=== PATIENT | male | born 1955 | race Caucasian/White ===

== ENCOUNTER 2019-05-18 00:19 | Emergency (ER) | payer MEDICAID ==
[~2019-05-18] VITALS: Ht 177.8 cm; Wt 80.7 kg
[2019-05-18 00:22] VITALS: BP 149/91
--- NOTE | 2019-05-18 00:35 | NUR ---
L eye flush w/ orlin's lens w/ 1L NS.
[2019-05-18] MEDS ORDERED: FLUORESCEIN SODIUM OPHTH 1 EA STRIP ONE (00:53)
[2019-05-18] MEDS ORDERED: TETRAcaine 5 ML BOTTLE EACHEYE ONE (01:00)
[2019-05-18] MEDS ORDERED: FLUORESCEIN SODIUM OPHTH 1 EA STRIP OP ONE (01:00)
--- NOTE | 2019-05-18 01:02 | NUR ---
Patient discharged to home in stable condition. Written and verbal after care instructions given. Patient verbalizes understanding of instruction. Pt ambulatory with a steady gait
== END 2019-05-18 01:05 | disposition home or self-care (01) ==
LOC: ER 00:23
DX: T15.92XA Foreign body on external eye, part unspecified, left eye, initial encounter (principal); X58.XXXA Exposure to other specified factors, initial encounter; Y93.89 Activity, other specified; Y92.89 Other specified places as the place of occurrence of the external cause; Y99.8 Other external cause status
CPT/HCPCS: 99283; J7030

== ENCOUNTER 2022-05-31 09:13 | Emergency (ER) | payer MEDICAID ==
[~2022-05-31] VITALS: Ht 177.8 cm; Wt 82.6 kg
--- NOTE | 2022-05-31 09:20 | NUR ---
TO ER BED 10 AWAITING MD GODDARD
--- NOTE | 2022-05-31 09:31 | NUR ---
X RAY AT BEDSIDE
--- NOTE | 2022-05-31 09:33 | NUR ---
PT TAKEN TO CT VIA [facility]
--- NOTE | 2022-05-31 09:48 | NUR ---
IV ESTABLISHED L AC 20G. LABS COLLECTED AND SENT.
--- NOTE | 2022-05-31 09:55 | NUR ---
PT UNABLE TO PROVIDE URINE AT THIS TIME, WILL ENCOURAGE LATER.
[2022-05-31 09:57] LABS: BASOPHILS # (AUTO) 0.1 K/uL (0.0-0.2); BASOPHILS % (AUTO) 0.5 % (0.0-2.0); EOSINOPHILS % (AUTO) 0.6 % (0.0-6.0); HEMATOCRIT 45 % (39-51); HEMOGLOBIN 14.4 g/dL (13.5-17.5); LYMPHOCYTES # (AUTO) 1.7 K/uL (0.8-4.8); LYMPHOCYTES % (AUTO) 10.5 % (20.0-44.0); MEAN CORPUSCULAR HGB CONC 32 g/dl (31.0-36.0); MEAN CORPUSCULAR VOLUME 82 fL (80-96); MONOCYTES # (AUTO) 1.5 K/uL (0.1-1.30); MONOCYTES % (AUTO) 9.1 % (2.0-12.0); NEUTROPHILS # (AUTO) 12.9 K/uL (1.8-8.9); NEUTROPHILS % (AUTO) 79.3 % (43.0-81.0); PLATELET COUNT (AUTO) 267 K/uL (150-450); RED BLOOD CELL COUNT(AUTO) 5.42 MIL/uL (4.5-6.0); WHITE BLOOD COUNT (AUTO) 16.3 K/uL (4.3-11.0)
[2022-05-31 10:14] LABS: CALCIUM, SERUM 9.3 mg/dL (8.5-10.1); CARBON DIOXIDE 24 mmol/L (21-32); CHLORIDE 102 mmol/L (98-107); GLUCOSE 146 mg/dL (74-106); POTASSIUM 4.2 mmol/L (3.5-5.1); SODIUM SERUM 135 mmol/L (136-145); UREA NITROGEN, BLOOD 17 mg/dL (7-18)
[2022-05-31 10:24] LABS: ALANINE AMINOTRANSFERASE 21 U/L (12-78); ALBUMIN 3.6 g/dL (3.4-5.0); ALKALINE PHOSPHATASE 96 U/L (46-116); ASPARTATE AMINOTRANSFERASE 16 U/L (15-37); BILIRUBIN,DIRECT 0.2 mg/dL (0.0-0.2); BILIRUBIN,TOTAL 0.9 mg/dL (0.2-1.0); LIPASE 70 U/L (73-393); TOTAL PROTEIN, SERUM 6.9 g/dL (6.4-8.2)
[2022-05-31 10:38] LABS: BILIRUBIN,URINE Negative (NEGATIVE); COLOR,URINE YELLOW (YELLOW); LEUKOCYTE ESTERASE ,URINE Small (NEGATIVE); NITRITE, URINE Positive (NEGATIVE); PH,URINE 7.5 (5.0-8.0); PROTEIN,URINE 30 mg/dl (NEGATIVE); UGLUCOSE Negative (NEGATIVE); UROBILINOGEN,URINE 0.2 EU/dL (0.2)
[2022-05-31 10:50] LABS: BACTERIA,URINE 4+ /HPF (None Seen); SQUAMOUS EPITHELIAL CELL,UR None Seen /HPF (None Seen)
[2022-05-31 10:51] LABS: MUCUS,URINE Few /LPF (None Seen)
[2022-05-31] MEDS ORDERED: CIPROFLOXACIN HCL 500 MG TABLET PO ONE (11:00)
[2022-05-31] MEDS ORDERED: CIPR-262 PO (11:07)
[2022-05-31] MEDS ORDERED: CIPROFLOXACIN HCL 500 MG TABLET ONE (11:11)
--- NOTE | 2022-05-31 11:15 | NUR ---
Medication administered as orderer
--- NOTE | 2022-05-31 11:17 | NUR ---
IV removed, dressing cdi. Patient agrees with discharge, paperwork signed and plan discussed.
[2022-05-31 11:19] VITALS: BP 112/74
== END 2022-05-31 11:20 | disposition home or self-care (01) ==
LOC: ER 09:13
DX: N39.0 Urinary tract infection, site not specified (principal); Z60.2 Problems related to living alone
CPT/HCPCS: 36415; 71045-TC; 80048-TC; 80076-TC; 81001; 83690-TC; 84484-TC; 85025-TC; 87086-TC

== ENCOUNTER 2025-01-24 23:53 | Emergency (ER) | payer OTHER, MEDICAID ==
[~2025-01-24] VITALS: Ht 170.2 cm; Wt 77.1 kg
[~2025-01-24 23:53] MED LIST: CIPR-262 PO
[2025-01-25 01:42] VITALS: BP 133/70; TEMP 98.5; O2SAT 98
[2025-01-25] MEDS ORDERED: FLUORESCEIN SODIUM OPHTH 1 EA STRIP ONE (01:53)
[2025-01-25] MEDS ORDERED: TETRAcaine 5 ML BOTTLE ONE (01:53)
[2025-01-25] MEDS: OFLOXACIN 0.3% OPHTH 5 ML BOTTLE RIGHTEYE SCH (02:00)
[2025-01-25] MEDS: KETOROLAC EYE 0.5% 3 ML BOTTLE RIGHTEYE SCH (02:00)
[2025-01-25] MEDS ORDERED: OFLO5DRO6 RIGHTEYE (02:16)
[2025-01-25] MEDS ORDERED: KETO5DRO83 RIGHTEYE (02:16)
== END 2025-01-25 02:29 | disposition home or self-care (01) ==
LOC: ER 01-25 00:09
DX: T15.81XA Foreign body in other and multiple parts of external eye, right eye, initial encounter (principal); W44.8XXA Other foreign body entering into or through a natural orifice, initial encounter; Y93.89 Activity, other specified; Y92.89 Other specified places as the place of occurrence of the external cause; Y99.8 Other external cause status